=== PATIENT | female | born 1980 | race Caucasian/White ===

== ENCOUNTER → 2024-06-21 | Outpatient (CLI) | payer OTHER ==
[~2024-06-21] MED LIST: MOTRIN 800800 MG/TAB PO; NORCO 325 MG-51 TAB PO; NUVA RING; NUVARING1 ICR VG
== END ==
LOC: MC.RAD 06:57
DX: N63.15 Unspecified lump in the right breast, overlapping quadrants (principal); N63.11 Unspecified lump in the right breast, upper outer quadrant